=== PATIENT | female | born 1960 | race Caucasian/White ===

== ENCOUNTER 2018-08-17 02:47 | Emergency (ER) | payer SELFPAY ==
[2018-08-17] MEDS ORDERED: EPINEPHRINE/PF 1 MG/ML AMP ONE (03:20)
--- NOTE | 2018-08-17 05:07 | EDPHYS ---
Physician Documentation [facility] Name: Remedios Valdes Age: 58 yrs Sex: Female : 1960 Arrival Date: 08/17/2018 Time: 02:48 Bed 7 Private MD: ED Physician Bharath Mcrae HPI: 08/17 20:51 This 58 yrs old Female presents to ER via Ambulatory with complaints of wa Allergic Reaction. 20:51 The patient presents with rash, that is diffuse, redness of skin, swelling of the lips. wa Onset: The symptoms/episode began/occurred 3 day(s) ago. Associated signs and symptoms: Pertinent positives: rash, swelling, Pertinent negatives: shortness of breath, Syncope. Possible causes: antibiotics, Zithromax and prednisone. At home the patient or guardian has treated the symptoms with Benadryl. Severity of symptoms: At their worst the symptoms were moderate in the emergency department the symptoms are worse moderately. The patient has not experienced similar symptoms in the past. The patient has been recently seen by a physician: saw PMD and given script for bronchitis and sinus infection. Historical: - Allergies: 02:58 Azithromycin; jd3 02:58 Prednisone; jd3 - Home Meds: 02:58 None [Active]; jd3 - PMHx: 02:58 "heart problem"; jd3 - PSHx: 02:58 ; Tonsillectomy; jd3 - Immunization history:: Adult Immunizations up to date. - Social history:: Smoking status: Patient uses tobacco products, smokes one-half pack cigarettes per day, smokes one pack cigarettes per day. - Ebola Screening: : Patient negative for fever greater than or equal to 101.5 degrees Fahrenheit, and additional compatible Ebola Virus Disease symptoms. - Family history:: not pertinent. - Hospitalizations: : No recent hospitalization is reported. ROS: 20:54 Constitutional: Negative for fever, chills, and weight loss, Eyes: Negative for injury, wa pain, redness, and discharge, ENT: Negative for injury, pain, and discharge, Neck: Negative for injury, pain, and swelling, Cardiovascular: Negative for chest pain, palpitations, and edema, Respiratory: Negative for shortness of breath, cough, wheezing, and pleuritic chest pain, Abdomen/GI: Negative for abdominal pain, nausea, vomiting, diarrhea, and constipation, Back: Negative for injury and pain, : Negative for injury, bleeding, discharge, and swelling, MS/Extremity: Negative for injury and deformity, Neuro: Negative for headache, weakness, numbness, tingling, and seizure. 20:54 Skin: Positive for rash, swelling, diffusely. 20:54 All other systems are negative. Exam: 20:55 Constitutional: This is a well developed, well nourished patient who is awake, alert, wa and in no acute distress. Head/Face: Normocephalic, atraumatic. Eyes: Pupils equal round and reactive to light, extra-ocular motions intact. Lids and lashes normal. Conjunctiva and sclera are non-icteric and not injected. Cornea within normal limits. Periorbital areas with no swelling, redness, or edema. Neck: Trachea midline, no thyromegaly or masses palpated, and no cervical lymphadenopathy. Supple, full range of motion without nuchal rigidity, or vertebral point tenderness. No Meningismus. Chest/axilla: Normal chest wall appearance and motion. Nontender with no deformity. No lesions are appreciated. Cardiovascular: Regular rate and rhythm with a normal S1 and S2. No gallops, murmurs, or rubs. Normal PMI, no JVD. No pulse deficits. Respiratory: Lungs have equal breath sounds bilaterally, clear to auscultation and percussion. No rales, rhonchi or wheezes noted. No increased work of breathing, no retractions or nasal flaring. Abdomen/GI: Soft, non-tender, with normal bowel sounds. No distension or tympany. No guarding or rebound. No evidence of tenderness throughout. Back: No spinal tenderness. No costovertebral tenderness. Full range of motion. MS/ Extremity: Pulses equal, no cyanosis. Neurovascular intact. Full, normal range of motion. Neuro: Awake and alert, GCS 15, oriented to person, place, time, and situation. Cranial nerves II-XII grossly intact. Motor strength 5/5 in all extremities. Sensory grossly intact. Cerebellar exam normal. Normal gait. Psych: Awake, alert, with orientation to person, place and time. Behavior, mood, and affect are within normal limits. 20:55 ENT: noted mild facial swelling. no airway involvement. 20:55 Skin: urticaria, and is diffusely located. Vital Signs: 02:58 BP 159 / 84; Pulse 86; Resp 17 S; Temp 98.4(O); Pulse Ox 98% on R/A; Weight 68.04 kg jd3 (R); Height 5 ft. 5 in. (165.10 cm) (R); Pain 3/10; 03:57 BP 145 / 89; Pulse 107; Resp 17 S; Pulse Ox 97% on R/A; jd3 04:59 BP 131 / 88; Pulse 97; Resp 19 S; Pulse Ox 97% on R/A; jd3 05:04 BP 111 / 84; Pulse 90; Resp 18; Pulse Ox 97% on R/A; ea 02:58 Body Mass Index 24.96 (68.04 kg, 165.10 cm) jd3 MDM: 03:01 Patient medically screened. wa 20:56 Differential diagnosis: anaphylaxis, angioedema, urticaria. Data reviewed: vital signs, wa nurses notes, radiologic studies, nml CXR. 08/17 03:08 Order name: Chest Pa And Lat (2 Views) XRAY wa Administered Medications: 03:17 Drug: EPINEPHrine 1mg/mL 1:1,000 0.3 ml Route: Sub-Q; Site: abdomen; jd3 05:14 Follow up: Response: No adverse reaction; Marked relief of symptoms jd3 Disposition: 08/17/18 05:06 Discharged to Home. Impression: Acute Allergic Reaction. - Condition is Stable. - Medication Reconciliation Form, Thank You Letter, Antibiotic Education, Prescription Opioid Use form. - Follow up: Private Physician; When: 1 - 2 days; Reason: Recheck today's complaints. - Problem is new. - Symptoms have improved. - Notes: return here immediately for worsening concerns such as swelling and or difficulty breathing Signatures: Dispatcher [employer] EDMS Bharath Mcrae MD MD wa Davies, Jonathon, RN RN jd3 Corrections: (The following items were deleted from the chart) 05:14 05:06 08/17/2018 05:06 Discharged to Home. Impression: Acute Allergic Reaction. jd3 Condition is Stable. Forms are Medication Reconciliation Form, Thank You Letter, Antibiotic Education, Prescription Opioid Use. Follow up: Private Physician; When: 1 - 2 days; Reason: Recheck today's complaints. Problem is new. Symptoms have improved. wa
--- NOTE | 2018-08-17 05:07 | ER ---
Nurse's Notes [facility] Name: Remedios Valdes Age: 58 yrs Sex: Female : 1960 Arrival Date: 08/17/2018 Time: 02:48 Bed 7 Private MD: Diagnosis: Acute Allergic Reaction Presentation: 08/17 02:53 Presenting complaint: Patient states: "I am having an allergic reaction to my jd3 azithromycin and prednisone I just got filled. I took 50 mg Benadryl last at 0200 and I am still having swelling in the face and hives, and my throat hurts.". Transition of care: patient was not received from another setting of care. Onset of symptoms was August 16, 2018. Risk Assessment: Do you want to hurt yourself or someone else? Patient reports no desire to harm self or others. Initial Sepsis Screen: Does the patient meet any 2 criteria? No. Patient's initial sepsis screen is negative. Does the patient have a suspected source of infection? No. Patient's initial sepsis screen is negative. Care prior to arrival: Medication(s) given: Benadryl 50 MG taken at 0200. 02:53 Method Of Arrival: Ambulatory jd3 02:53 Acuity: RAE 3 jd3 Historical: - Allergies: 02:58 Azithromycin; jd3 02:58 Prednisone; jd3 - Home Meds: 02:58 None [Active]; jd3 - PMHx: 02:58 "heart problem"; jd3 - PSHx: 02:58 ; Tonsillectomy; jd3 - Immunization history:: Adult Immunizations up to date. - Social history:: Smoking status: Patient uses tobacco products, smokes one-half pack cigarettes per day, smokes one pack cigarettes per day. - Ebola Screening: : Patient negative for fever greater than or equal to 101.5 degrees Fahrenheit, and additional compatible Ebola Virus Disease symptoms. - Family history:: not pertinent. - Hospitalizations: : No recent hospitalization is reported. Screenin:04 Abuse screen: Denies threats or abuse. Nutritional screening: No deficits noted. jd3 Tuberculosis screening: No symptoms or risk factors identified. Fall Risk Ambulatory Aid- None/Bed Rest/Nurse Assist (0 pts). Gait- Normal/Bed Rest/Wheelchair (0 pts) Mental Status- Oriented to own ability (0 pts). Total Dunlap Fall Scale indicates No Risk (0-24 pts). Assessment: 02:59 General: Appears uncomfortable, Behavior is calm, cooperative, appropriate for age. jd3 Pain: Complains of pain in throat Quality of pain is described as aching. Neuro: Level of Consciousness is awake, alert, obeys commands, Oriented to person, place, time, situation, Appropriate for age. Cardiovascular: Capillary refill < 3 seconds Patient's skin is warm and dry. Respiratory: Reports pain in the throat. Airway is patent Respiratory effort is even, unlabored, Respiratory pattern is regular, symmetrical, Breath sounds are clear bilaterally. GI: No signs and/or symptoms were reported involving the gastrointestinal system. : No signs and/or symptoms were reported regarding the genitourinary system. EENT: No signs and/or symptoms were reported regarding the EENT system. Derm: Skin is intact, Skin is dry, Skin is normal, Skin temperature is warm Rash noted that is itchy, red, on back and right hip. Musculoskeletal: Circulation, motion, and sensation intact. Range of motion: intact in all extremities, Swelling present in face. 03:56 Reassessment: Patient appears in no apparent distress at this time. Patient and/or jd3 family updated on plan of care and expected duration. Pain level reassessed. Patient is alert, oriented x 3, equal unlabored respirations, skin warm/dry/pink. 04:59 Reassessment: Patient appears in no apparent distress at this time. Patient and/or jd3 family updated on plan of care and expected duration. Pain level reassessed. Patient is alert, oriented x 3, equal unlabored respirations, skin warm/dry/pink. Patient states feeling better. Vital Signs: 02:58 BP 159 / 84; Pulse 86; Resp 17 S; Temp 98.4(O); Pulse Ox 98% on R/A; Weight 68.04 kg jd3 (R); Height 5 ft. 5 in. (165.10 cm) (R); Pain 3/10; 03:57 BP 145 / 89; Pulse 107; Resp 17 S; Pulse Ox 97% on R/A; jd3 04:59 BP 131 / 88; Pulse 97; Resp 19 S; Pulse Ox 97% on R/A; jd3 05:04 BP 111 / 84; Pulse 90; Resp 18; Pulse Ox 97% on R/A; ea 02:58 Body Mass Index 24.96 (68.04 kg, 165.10 cm) jd3 ED Course: 02:48 Patient arrived in ED. jd3 02:55 Triage completed. jd3 02:59 Arm band placed on. jd3 03:01 Bharath Mcrae MD is Attending Physician. ks 03:04 Patient has correct armband on for positive identification. Bed in low position. Call j light in reach. Side rails up X 1. Adult w/ patient. 03:08 Erik Rosario, RN is Primary Nurse. jd3 03:31 Patient moved to radiology via wheelchair. sg4 03:36 X-ray completed. Patient tolerated procedure well. sg4 03:36 Patient moved back from radiology. sg4 04:11 Chest Pa And Lat (2 Views) XRAY In Process Unspecified. EDMS 05:13 No provider procedures requiring assistance completed. Patient did not have IV access jd3 during this emergency room visit. Administered Medications: 03:17 Drug: EPINEPHrine 1mg/mL 1:1,000 0.3 ml Route: Sub-Q; Site: abdomen; jd3 05:14 Follow up: Response: No adverse reaction; Marked relief of symptoms jd3 Outcome: 05:06 Discharge ordered by . vanessa 05:13 Discharged to home ambulatory, with family. jd3 05:13 Condition: stable 05:13 Discharge instructions given to patient, family, Instructed on discharge instructions, follow up and referral plans. Demonstrated understanding of instructions, follow-up care. 05:14 Patient left the ED. jd3 Signatures: Dispatcher [employer] EDVA Brittney Merritt RN RN ea Appiah, William, MD MD wa Davies, Jonathon, RN RN Charis Nava sg4 Corrections: (The following items were deleted from the chart) 03:04 02:53 Care prior to arrival: None. jd3 jd3 03:58 03:57 Pulse 107bpm; Resp 17bpm; Spontaneous; Pulse Ox 97% RA; jd3 jd3
--- NOTE | 2018-08-17 09:51 | RAD REPORT ---
EXAM DESCRIPTION: RAD - Chest Pa And Lat (2 Views) - 08/17/2018 4:11 am CLINICAL HISTORY: COUGH Chest pain. COMPARISON: No comparisons FINDINGS: Emphysematous changes are present throughout the lungs. Apical pleural thickening is prese nt. Calcified granulomata are seen. The heart is normal in size. No displaced fractures. IMPRESSION: Prominent COPD.
== END 2018-08-17 05:14 | disposition home or self-care (01) ==
LOC: ER 02:47
DX: L50.9 Urticaria, unspecified (principal); T50.905A Adverse effect of unspecified drugs, medicaments and biological substances, initial encounter; F17.210 Nicotine dependence, cigarettes, uncomplicated
CPT/HCPCS: 71046; 96372; 99283; J0171

== ENCOUNTER 2018-08-17 12:38 | Emergency (ER) | payer SELFPAY ==
[2018-08-17] MEDS ORDERED: DIPHENHYDRAMINE 50 MG/ML VIAL ONE (14:18)
[2018-08-17] MEDS ORDERED: DEXAMETHASONE 10 MG/ML VIAL ONE (14:18)
[2018-08-17] MEDS ORDERED: NA CHLORIDE 0.9% 500 ML ONE (14:18)
[2018-08-17] MEDS ORDERED: FAMOTIDINE 20 MG/2 ML VIAL IV ONE (14:19)
[2018-08-17 14:22] LABS: Absolute Lymphocytes (CBC) 2.6 K/uL (0.7-4.9); Absolute Monocytes 0.6 K/uL (0.1-1.3); Absolute Neutrophil 11.7 K/uL (1.8-8.0); Basophils % 0.6 % (0-1.3); Eosinophils % 0.8 % (0-4.4); Hematocrit 45.6 % (36.0-45.0); Lymphocytes % 17.3 % (15.3-44.8); MPV 6.9 fL (7.6-11.3); Monocytes % 4.2 % (3.3-12.3); RBC Red Blood Cell Count 4.96 M/uL (3.86-4.86)
[2018-08-17 14:45] LABS: Albumin 3.4 g/dL (3.4-5.0); Bilirubin Total 0.3 mg/dL (0.2-1.0); Protein, Total 7.1 g/dL (6.4-8.2)
--- NOTE | 2018-08-17 15:14 | EDPHYS ---
Physician Documentation [facility] Name: Remedios Valdes Age: 58 yrs Sex: Female : 1960 Arrival Date: 08/17/2018 Time: 12:40 Bed 26 Private MD: ED Physician Jose Juan Beltre HPI: 08/17 14:06 This 58 yrs old Female presents to ER via Ambulatory with complaints of Hand galileo Swelling, Facial Swelling. 14:06 The patient or guardian reports swelling, tenderness. galileo 14:09 The patient presents with diffuse swelling, rash, redness of skin. Onset: The galileo symptoms/episode began/occurred 2 day(s) ago. Associated signs and symptoms: Pertinent positives: hives. Possible causes: prednisone or zithromax. At home the patient or guardian has treated the symptoms with nothing. Severity of symptoms: At their worst the symptoms were moderate in the emergency department the symptoms are unchanged. The patient has not experienced similar symptoms in the past. Historical: - Allergies: 12:54 Azithromycin; iw 12:54 Prednisone; iw - PMHx: 12:54 "heart problem"; iw - PSHx: 12:54 ; Tonsillectomy; iw - Immunization history:: Adult Immunizations not up to date. - Social history:: Smoking status: Patient uses tobacco products, smokes one pack cigarettes per day. - Ebola Screening: : Patient negative for fever greater than or equal to 101.5 degrees Fahrenheit, and additional compatible Ebola Virus Disease symptoms Patient denies exposure to infectious person Patient denies travel to an Ebola-affected area in the 21 days before illness onset No symptoms or risks identified at this time. ROS: 14:10 Constitutional: Negative for fever, chills, and weight loss, Eyes: Negative for injury, galileo pain, redness, and discharge, ENT: Negative for injury, pain, and discharge, Neck: Negative for injury, pain, and swelling, Cardiovascular: Negative for chest pain, palpitations, and edema, Respiratory: Negative for shortness of breath, cough, wheezing, and pleuritic chest pain, Abdomen/GI: Negative for abdominal pain, nausea, vomiting, diarrhea, and constipation, Back: Negative for injury and pain, : Negative for injury, bleeding, discharge, and swelling, MS/Extremity: Negative for injury and deformity, Neuro: Negative for headache, weakness, numbness, tingling, and seizure, Psych: Negative for depression, anxiety, suicide ideation, homicidal ideation, and hallucinations, Allergy/Immunology: Negative for hives, rash, and allergies, Endocrine: Negative for neck swelling, polydipsia, polyuria, polyphagia, and marked weight changes, Hematologic/Lymphatic: Negative for swollen nodes, abnormal bleeding, and unusual bruising. 14:10 Skin: Positive for rash. Exam: 14:10 Constitutional: This is a well developed, well nourished patient who is awake, alert, galileo and in no acute distress. Head/Face: Normocephalic, atraumatic. Eyes: Pupils equal round and reactive to light, extra-ocular motions intact. Lids and lashes normal. Conjunctiva and sclera are non-icteric and not injected. Cornea within normal limits. Periorbital areas with no swelling, redness, or edema. Neck: Trachea midline, no thyromegaly or masses palpated, and no cervical lymphadenopathy. Supple, full range of motion without nuchal rigidity, or vertebral point tenderness. No Meningismus. Chest/axilla: Normal chest wall appearance and motion. Nontender with no deformity. No lesions are appreciated. Cardiovascular: Regular rate and rhythm with a normal S1 and S2. No gallops, murmurs, or rubs. Normal PMI, no JVD. No pulse deficits. Respiratory: Lungs have equal breath sounds bilaterally, clear to auscultation and percussion. No rales, rhonchi or wheezes noted. No increased work of breathing, no retractions or nasal flaring. Abdomen/GI: Soft, non-tender, with normal bowel sounds. No distension or tympany. No guarding or rebound. No evidence of tenderness throughout. Back: No spinal tenderness. No costovertebral tenderness. Full range of motion. MS/ Extremity: Pulses equal, no cyanosis. Neurovascular intact. Full, normal range of motion. Neuro: Awake and alert, GCS 15, oriented to person, place, time, and situation. Cranial nerves II-XII grossly intact. Motor strength 5/5 in all extremities. Sensory grossly intact. Cerebellar exam normal. Normal gait. Psych: Awake, alert, with orientation to person, place and time. Behavior, mood, and affect are within normal limits. 14:10 ENT: Posterior pharynx: Tonsils: enlarged on the left, with erythema, Uvula: normal, midline, swelling, that is mild, erythema, that is mild, exudate, is not appreciated. 14:10 Skin: Appearance: Color: pink, erythematous, Temperature: warm, Moisture: normal moisture, petechiae, not noted, ecchymosis, not noted, flushing, not noted, diaphoresis is not appreciated. Vital Signs: 12:54 BP 154 / 79; Pulse 90; Resp 18 S; Temp 97.6; Pulse Ox 95% on R/A; Weight 68.04 kg; iw Height 5 ft. 5 in. (165.10 cm); Pain 4/10; 13:40 BP 157 / 80; Pulse 93; Resp 18; Pulse Ox 96% on R/A; mt 14:35 BP 116 / 57; Pulse 93; Resp 18; Pulse Ox 99% on R/A; tl3 15:19 BP 124 / 76; Pulse 89; Resp 18; Pulse Ox 97% on R/A; Pain 0/10; ed1 12:54 Body Mass Index 24.96 (68.04 kg, 165.10 cm) iw MDM: 13:41 Patient medically screened. [facility] 14:12 Data reviewed: vital signs, nurses notes, lab test result(s), radiologic studies, plain galileo films. 08/17 14:06 Order name: CBC with Diff [facility] 08/17 14:06 Order name: Comprehensive Metabolic Panel; Complete Time: 15:13 [facility] 08/17 14:06 Order name: Urine Culture [facility] 08/17 15:15 Order name: Urine Dipstick--Ancillary (enter results) 08/17 14:06 Order name: Urine Dipstick-Ancillary (obtain specimen); Complete Time: 15:16 [facility] Administered Medications: 14:17 Drug: Decadron - Dexamethasone 10 mg Route: IVP; Infused Over: 1 mins; Site: right tl3 antecubital; 14:50 Follow up: Response: No adverse reaction tl3 14:18 Drug: NS 0.9% 500 ml Route: IV; Rate: bolus; Infused Over: 30 mins; Site: right tl3 antecubital; Delivery: Primary tubing; 14:51 Follow up: IV Status: Completed infusion; IV Intake: 500ml tl3 14:18 Drug: Benadryl 50 mg Route: IVP; Infused Over: 30 mins; Site: right antecubital; tl3 14:51 Follow up: Response: No adverse reaction tl3 14:18 Drug: Pepcid 40 mg Route: IVP; Infused Over: 2 mins; Site: right antecubital; tl3 14:51 Follow up: Response: No adverse reaction tl3 Disposition: 08/17/18 15:13 Discharged to Home. Impression: Urticaria, Elevated white blood cell count, Urinary tract infection, site not specified. - Condition is Fair. - Discharge Instructions: Allergies, Adult, Dysuria, Hives, Hives, [id number]. - Prescriptions for Benadryl 25 mg Oral Capsule - take 2 capsule by ORAL route every 6 hours As needed; 36 tablet. Pepcid 20 mg Oral Tablet - take 1 tablet by ORAL route every 12 hours for 10 days; 20 tablet. Dexamethasone 0.75 mg Oral Tablet - take 2 tablet by ORAL route 2 times per day; 20 tablet. Bactrim DS 800- 160 mg Oral Tablet - take 1 tablet by ORAL route every 12 hours for 5 days; 10 tablet. - Medication Reconciliation Form, Thank You Letter, Antibiotic Education, Prescription Opioid Use form. - Follow up: Private Physician; When: 2 - 3 days; Reason: Recheck today's complaints, Continuance of care, Re-evaluation by your physician. - Problem is new. - Symptoms have improved. Signatures: Dispatcher [employer] EDJose Juan uSn MD MD cha Williams, Irene, RN MARIO iw Violeta Fuentes, RESIDENTIAL MORTGAGE UNDERWRITER RESIDENTIAL MORTGAGE UNDERWRITER ed1 Vilma Burns RN RN tl3 Corrections: (The following items were deleted from the chart) 15:14 15:13 08/17/2018 15:13 Discharged to Home. Impression: Urticaria; Elevated white blood galileo cell count. Condition is Fair. Discharge Instructions: Allergies, Adult, Hives, Hives, [id number]. Prescriptions for Benadryl 25 mg Oral Capsule - take 1 capsule by ORAL route every 6 hours As needed; 30 tablet, Pepcid 20 mg Oral Tablet - take 1 tablet by ORAL route every 12 hours for 10 days; 20 tablet, Dexamethasone 0.75 mg Oral Tablet - take 2 tablet by ORAL route 2 times per day; 20 tablet. and Forms are Medication Reconciliation Form, Thank You Letter, Antibiotic Education, Prescription Opioid Use. Follow up: Private Physician; When: 2 - 3 days; Reason: Recheck today's complaints, Continuance of care, Re-evaluation by your physician. Problem is new. Symptoms have improved. [facility] 15:22 15:14 08/17/2018 15:13 Discharged to Home. Impression: Urticaria; Elevated white blood ed1 cell count; Urinary tract infection, site not specified. Condition is Fair. Discharge Instructions: Allergies, Adult, Hives, Hives, [id number]. Prescriptions for Benadryl 25 mg Oral Capsule - take 2 capsule by ORAL route every 6 hours As needed; 36 tablet, Pepcid 20 mg Oral Tablet - take 1 tablet by ORAL route every 12 hours for 10 days; 20 tablet, Dexamethasone 0.75 mg Oral Tablet - take 2 tablet by ORAL route 2 times per day; 20 tablet. and Forms are Medication Reconciliation Form, Thank You Letter, Antibiotic Education, Prescription Opioid Use. Follow up: Private Physician; When: 2 - 3 days; Reason: Recheck today's complaints, Continuance of care, Re-evaluation by your physician. Problem is new. Symptoms have improved. [facility]
--- NOTE | 2018-08-17 15:14 | ER ---
Nurse's Notes [facility] Name: Remedios Valdes Age: 58 yrs Sex: Female : 1960 Arrival Date: 08/17/2018 Time: 12:40 Bed 26 Private MD: Diagnosis: Urticaria;Elevated white blood cell count;Urinary tract infection, site not specified Presentation: 08/17 12:52 Presenting complaint: Patient states: was here for an allergic reaction, given epi shot iw and sent home, states symptoms are rosangela from when she left last night, has swelling to hands and mild swelling to face, also c/o itchiness. Transition of care: patient was not received from another setting of care. Onset of symptoms was August 17, 2018. Risk Assessment: Do you want to hurt yourself or someone else? Patient reports no desire to harm self or others. Initial Sepsis Screen: Does the patient meet any 2 criteria? No. Patient's initial sepsis screen is negative. Does the patient have a suspected source of infection? No. Patient's initial sepsis screen is negative. Care prior to arrival: None. 12:52 Method Of Arrival: Ambulatory 12:52 Acuity: RAE 3 iw Historical: - Allergies: 12:54 Azithromycin; iw 12:54 Prednisone; iw - PMHx: 12:54 "heart problem"; iw - PSHx: 12:54 ; Tonsillectomy; iw - Immunization history:: Adult Immunizations not up to date. - Social history:: Smoking status: Patient uses tobacco products, smokes one pack cigarettes per day. - Ebola Screening: : Patient negative for fever greater than or equal to 101.5 degrees Fahrenheit, and additional compatible Ebola Virus Disease symptoms Patient denies exposure to infectious person Patient denies travel to an Ebola-affected area in the 21 days before illness onset No symptoms or risks identified at this time. Screenin:56 Abuse screen: Denies threats or abuse. Nutritional screening: No deficits noted. tl3 Tuberculosis screening: No symptoms or risk factors identified. Fall Risk None identified. Assessment: 13:56 General: Appears distressed, uncomfortable, well groomed, well developed, well tl3 nourished, Behavior is anxious. Pain: Complains of pain in generalized swelling, itching. Neuro: No deficits noted. Level of Consciousness is awake, alert, obeys commands, Oriented to person, place, time, situation, Appropriate for age. Cardiovascular: Patient's skin is warm and dry. Respiratory: Airway is patent Respiratory effort is even, unlabored, Respiratory pattern is regular, symmetrical. GI: No signs and/or symptoms were reported involving the gastrointestinal system. : No signs and/or symptoms were reported regarding the genitourinary system. EENT: No signs and/or symptoms were reported regarding the EENT system. Derm: Skin is red, Rash noted that is itchy. Musculoskeletal: No signs and/or symptoms reported regarding the musculoskeletal system. 13:59 Reassessment: pt had reaction to Z-pack or steroids that she was on, seen here last tl3 night received EPI, swelling and itching with generalized rash. Dr Beltre at bedside for assessment. 14:19 Reassessment: pt crying stating that she is burning all over, verbally reassured her tl3 that in 10 minutes if meds do not relieve symptoms that MD would be informed, and new orders asked for. 14:35 Reassessment: Patient appears in no apparent distress at this time. Pt states itching tl3 is better. 15:19 Reassessment: Patient appears in no apparent distress at this time. Patient and/or ed1 family updated on plan of care and expected duration. Pain level reassessed. Patient is alert, oriented x 3, equal unlabored respirations, skin warm/dry/pink. Pt states "I am still itching, but I feel a lot better.". Vital Signs: 12:54 BP 154 / 79; Pulse 90; Resp 18 S; Temp 97.6; Pulse Ox 95% on R/A; Weight 68.04 kg; iw Height 5 ft. 5 in. (165.10 cm); Pain 4/10; 13:40 BP 157 / 80; Pulse 93; Resp 18; Pulse Ox 96% on R/A; mt 14:35 BP 116 / 57; Pulse 93; Resp 18; Pulse Ox 99% on R/A; tl3 15:19 BP 124 / 76; Pulse 89; Resp 18; Pulse Ox 97% on R/A; Pain 0/10; ed1 12:54 Body Mass Index 24.96 (68.04 kg, 165.10 cm) iw ED Course: 12:40 Patient arrived in ED. sb2 12:54 Triage completed. iw 12:54 Arm band placed on. iw 13:40 Jose Juan Beltre MD is Attending Physician. galileo 13:54 Vilma Burns, RN is Primary Nurse. tl3 13:56 Patient has correct armband on for positive identification. Bed in low position. Call tl3 light in reach. Side rails up X 1. Adult w/ patient. Pulse ox on. NIBP on. 13:56 No provider procedures requiring assistance completed. tl3 14:07 Inserted saline lock: 20 gauge in right antecubital area, using aseptic technique. mt Blood collected. 15:19 IV discontinued, intact, bleeding controlled, No redness/swelling at site. Pressure ed1 dressing applied. Administered Medications: 14:17 Drug: Decadron - Dexamethasone 10 mg Route: IVP; Infused Over: 1 mins; Site: right tl3 antecubital; 14:50 Follow up: Response: No adverse reaction tl3 14:18 Drug: NS 0.9% 500 ml Route: IV; Rate: bolus; Infused Over: 30 mins; Site: right tl3 antecubital; Delivery: Primary tubing; 14:51 Follow up: IV Status: Completed infusion; IV Intake: 500ml tl3 14:18 Drug: Benadryl 50 mg Route: IVP; Infused Over: 30 mins; Site: right antecubital; tl3 14:51 Follow up: Response: No adverse reaction tl3 14:18 Drug: Pepcid 40 mg Route: IVP; Infused Over: 2 mins; Site: right antecubital; tl3 14:51 Follow up: Response: No adverse reaction tl3 Intake: 14:51 IV: 500ml; Total: 500ml. tl3 Outcome: 15:13 Discharge ordered by . galileo 15:19 Discharged to home ambulatory, with family. ed1 15:19 Condition: good 15:19 Discharge instructions given to patient, Instructed on discharge instructions, follow up and referral plans. medication usage, Demonstrated understanding of instructions, follow-up care, medications, Prescriptions given X 4. 15:22 Patient left the ED. ed1 Signatures: Jose Juan Beltre MD MD cha Williams, Irene, RN RN iw Gina, Violeta, GEAR INSPECTOR GEAR INSPECTOR ed1 Liliana Gross fl Portia Nelson sb2 Vilma Burns, RN RN tl3 Corrections: (The following items were deleted from the chart) 14:08 12:52 Acuity: RAE 4 iw iw
[2018-08-17 15:32] LABS: Urine Blood NEGATIVE (NEG); Urine Glucose NEGATIVE (NEG); Urine Protein NEGATIVE (NEG); Urine Specific Gravity 1.025 (1.005-1.030); Urine pH 5.5 (5.0-7.0)
[2018-08-17 17:10] LABS: Blood Morphology Comment NOT SEEN (NOT SEEN); Platelet Estimate INCR
== END 2018-08-17 15:22 | disposition home or self-care (01) ==
LOC: ER 12:38
DX: L50.9 Urticaria, unspecified (principal); D72.829 Elevated white blood cell count, unspecified; N39.0 Urinary tract infection, site not specified; F17.210 Nicotine dependence, cigarettes, uncomplicated
CPT/HCPCS: 36415; 80053; 81003; 85025; 87086; 87088; 96361; 96374; 96375; 99284; J1100

== ENCOUNTER 2018-08-19 13:57 | Emergency (ER) | payer SELFPAY ==
[2018-08-19] MEDS ORDERED: FAMOTIDINE 20 MG/2 ML VIAL IV ONE (14:49)
[2018-08-19] MEDS ORDERED: DIPHENHYDRAMINE 50 MG/ML VIAL ONE (14:49)
[2018-08-19] MEDS ORDERED: METHYLPREDNISOLONE 125 MG INJ ONE (14:49)
--- NOTE | 2018-08-19 15:42 | ER ---
Nurse's Notes [facility] Name: Remedios Valdes Age: 58 yrs Sex: Female : 1960 Arrival Date: 08/19/2018 Time: 13:59 Bed 6 Private MD: Diagnosis: Urticaria, unspecified Presentation: 08/19 14:11 Presenting complaint: Patient states: i think i have an allergic reaction to a new medication, sulfamethoxazole, famotidine, dexamethasone fro flu and possible pneumonia; i started breaking in hives, rash; denies SOB; took Benadryl 12 noon today;. Transition of care: patient was not received from another setting of care. Onset: The symptoms/episode began/occurred this morning. Anaphylaxis evaluation, the patient reports or I have noted the following symptoms which indicate a significant risk of anaphylaxis:. Onset of symptoms was August 19, 2018. Risk Assessment: Do you want to hurt yourself or someone else? Patient reports no desire to harm self or others. Initial Sepsis Screen: Does the patient meet any 2 criteria? No. Patient's initial sepsis screen is negative. Does the patient have a suspected source of infection? No. Patient's initial sepsis screen is negative. Care prior to arrival: None. 14:11 Method Of Arrival: Ambulatory 14:11 Acuity: RAE 4 hj Triage Assessment: 14:15 General: Appears in no apparent distress. uncomfortable, Behavior is calm, cooperative, hj appropriate for age. Pain: Denies pain. Historical: - Allergies: 14:14 Azithromycin; 14:14 Prednisone; - Home Meds: 14:14 None [Active]; - PMHx: 14:14 "heart problem"; - PSHx: 14:14 ; Tonsillectomy; hj - Immunization history:: Adult Immunizations not up to date. - Social history:: Smoking status: Patient uses tobacco products, Patient uses alcohol, occasionally. - Ebola Screening: : Patient negative for fever greater than or equal to 101.5 degrees Fahrenheit, and additional compatible Ebola Virus Disease symptoms Patient denies exposure to infectious person Patient denies travel to an Ebola-affected area in the 21 days before illness onset. - Family history:: not pertinent. - Hospitalizations: : No recent hospitalization is reported. Screenin:15 Abuse screen: Denies threats or abuse. Denies injuries from another. Nutritional hj screening: No deficits noted. Tuberculosis screening: No symptoms or risk factors identified. Fall Risk None identified. Assessment: 14:15 Respiratory: Airway is patent Respiratory effort is even, unlabored, Respiratory hj pattern is regular, symmetrical, 14:25 General: Appears in no apparent distress. Behavior is anxious. Neuro: Level of tw2 Consciousness is awake, alert, obeys commands, Oriented to person, place, situation. Cardiovascular: Patient's skin is warm and dry. Respiratory: Airway is patent Respiratory effort is even, unlabored, Respiratory pattern is regular, symmetrical. Derm: Reports itching. Musculoskeletal: Range of motion: intact in all extremities. 15:40 Reassessment: Patient appears in no apparent distress at this time. No changes from tw2 previously documented assessment. Patient and/or family updated on plan of care and expected duration. Pain level reassessed. Patient is alert, oriented x 3, equal unlabored respirations, skin warm/dry/pink. 15:48 Reassessment: Patient states feeling better. Patient states symptoms have improved. tw2 Vital Signs: 14:15 BP 171 / 86; Pulse 86; Resp 18; Temp 97.9(TE); Pulse Ox 97% on R/A; Weight 68.04 kg; hj Height 5 ft. 5 in. (165.10 cm); Pain 0/10; 14:58 BP 168 / 100; Pulse 79; Resp 19; Pulse Ox 96% on R/A; tw2 15:28 BP 156 / 92; Pulse 79; Resp 18; Pulse Ox 96% ; sv 14:15 Body Mass Index 24.96 (68.04 kg, 165.10 cm) ED Course: 13:59 Patient arrived in ED. mr 14:14 Triage completed. hj 14:15 Arm band placed on right wrist. hj 14:15 Patient has correct armband on for positive identification. Bed in low position. Call light in reach. Side rails up X 1. 14:18 Tash Whatley, MARIO is Primary Nurse. tw2 14:18 [place] MD is Attending Physician. rn 14:40 Inserted saline lock: 22 gauge in right hand, using aseptic technique. tw2 15:48 No provider procedures requiring assistance completed. IV discontinued, intact, tw2 bleeding controlled, No redness/swelling at site. Pressure dressing applied. Administered Medications: 14:42 Drug: Benadryl 50 mg Route: IVP; Site: right hand; tw2 15:42 Follow up: Response: No adverse reaction; Marked relief of symptoms tw2 14:47 Drug: Pepcid 20 mg Route: IVP; Site: right hand; tw2 15:42 Follow up: Response: No adverse reaction tw2 14:53 Drug: SOLU-Medrol 125 mg Route: IVP; Site: right hand; tw2 15:42 Follow up: Response: No adverse reaction tw2 Outcome: 15:41 Discharge ordered by . rn 15:48 Discharged to home ambulatory, with family, with significant other. tw2 15:48 Condition: stable 15:48 Discharge instructions given to patient, family, significant other, Instructed on discharge instructions, follow up and referral plans. medication usage, Demonstrated understanding of instructions, follow-up care, medications, Prescriptions given X 2. 15:49 Patient left the ED. tw2 Signatures: Tiffany Orellana RN RN sv Rivera, Mary mr Nieto, Roman, MD MD rn Joaquin, Henry, RN RN hj Wise, Tara, RN RN tw2 Corrections: (The following items were deleted from the chart) 14:14 14:11 Presenting complaint: Patient states: i think i have an allergic reaction to a hj new medication, sulfamethoxazole, famotidine, dexamethasone fro flu and possible pneumonia; i started breaking in hives, rash; denies SOB; hj 14:18 14:15 Pulse 86bpm; Resp 18bpm; Pulse Ox 97% RA; Temp 97.9F Temporal; 68.04 kg; Height 5 hj ft. 5 in.; BMI: 24.9; Pain 0/10; hj
--- NOTE | 2018-08-19 15:42 | EDPHYS ---
Physician Documentation [facility] Name: Remedios Valdes Age: 58 yrs Sex: Female : 1960 Arrival Date: 08/19/2018 Time: 13:59 Bed 6 Private MD: ED Physician [place] HPI: 08/19 15:01 This 58 yrs old Female presents to ER via Ambulatory with complaints of rn Allergic Reaction, Anxiety. 15:01 The patient presents with itching, rash. Onset: The symptoms/episode began/occurred rn today. Possible causes: At home the patient or guardian has treated the symptoms with Benadryl. Severity of symptoms: At their worst the symptoms were mild in the emergency department the symptoms are unchanged. The patient has experienced similar episodes in the past. Reports this is 3rd visit this week for allergic reaction, + rash and itching, no swelling, no sob, reports first time took azithromycin and got better with steroids, switched to bactrim and got better, today began again with hives and itching, not as bad as first time, last dose of bactrim last night. . Historical: - Allergies: 14:14 Azithromycin; hj 14:14 Prednisone; hj - Home Meds: 14:14 None [Active]; hj - PMHx: 14:14 "heart problem"; hj - PSHx: 14:14 ; Tonsillectomy; hj - Immunization history:: Adult Immunizations not up to date. - Social history:: Smoking status: Patient uses tobacco products, Patient uses alcohol, occasionally. - Ebola Screening: : Patient negative for fever greater than or equal to 101.5 degrees Fahrenheit, and additional compatible Ebola Virus Disease symptoms Patient denies exposure to infectious person Patient denies travel to an Ebola-affected area in the 21 days before illness onset. - Family history:: not pertinent. - Hospitalizations: : No recent hospitalization is reported. ROS: 15:01 Constitutional: Negative for fever, chills, and weight loss, Eyes: Negative for injury, rn pain, redness, and discharge, Neck: Negative for injury, pain, and swelling, Cardiovascular: Negative for chest pain, palpitations, and edema, Respiratory: Negative for shortness of breath, cough, wheezing, and pleuritic chest pain, Abdomen/GI: Negative for abdominal pain, nausea, vomiting, diarrhea, and constipation, MS/Extremity: Negative for injury and deformity, Skin: + hives and itching Neuro: Negative for headache, weakness, numbness, tingling, and seizure. Exam: 15:01 Constitutional: This is a well developed, well nourished patient who is awake, alert, rn and in no acute distress, scratching neck Head/Face: Normocephalic, atraumatic. Eyes: Pupils equal round and reactive to light, extra-ocular motions intact. Lids and lashes normal. Conjunctiva and sclera are non-icteric and not injected. Cornea within normal limits. Periorbital areas with no swelling, redness, or edema. ENT: no oral lesions or swelling Respiratory: No increased work of breathing, no retractions or nasal flaring. Abdomen/GI: soft, non-tender Skin: + mild urticarial lesions to neck and bilateral upper ext, no skin sloughing MS/ Extremity: Pulses equal, no cyanosis. Neurovascular intact. Full, normal range of motion. Equal circumference. Neuro: Awake and alert, GCS 15, oriented to person, place, time, and situation. Cranial nerves II-XII grossly intact. Motor strength 5/5 in all extremities. Sensory grossly intact. Cerebellar exam normal. Normal gait. Vital Signs: 14:15 BP 171 / 86; Pulse 86; Resp 18; Temp 97.9(TE); Pulse Ox 97% on R/A; Weight 68.04 kg; hj Height 5 ft. 5 in. (165.10 cm); Pain 0/10; 14:58 BP 168 / 100; Pulse 79; Resp 19; Pulse Ox 96% on R/A; tw2 15:28 BP 156 / 92; Pulse 79; Resp 18; Pulse Ox 96% ; sv 14:15 Body Mass Index 24.96 (68.04 kg, 165.10 cm) hj MDM: 14:19 Patient medically screened. rn 15:39 Differential diagnosis: urticaria. Data reviewed: vital signs, nurses notes, and as a rn result, I will discharge patient. Counseling: I had a detailed discussion with the patient and/or guardian regarding: the historical points, exam findings, and any diagnostic results supporting the discharge/admit diagnosis, the need for outpatient follow up, to return to the emergency department if symptoms worsen or persist or if there are any questions or concerns that arise at home. Response to treatment: the patient's symptoms have markedly improved after treatment, and as a result, I will discharge patient. Special discussion: I discussed with the patient/guardian in detail that at this point there is no indication for admission to the hospital. It is understood, however, that if the symptoms persist or worsen the patient needs to return immediately for re-evaluation. 08/19 14:38 Order name: IV Start; Complete Time: 14:55 rn Administered Medications: 14:42 Drug: Benadryl 50 mg Route: IVP; Site: right hand; tw2 15:42 Follow up: Response: No adverse reaction; Marked relief of symptoms tw2 14:47 Drug: Pepcid 20 mg Route: IVP; Site: right hand; tw2 15:42 Follow up: Response: No adverse reaction tw2 14:53 Drug: SOLU-Medrol 125 mg Route: IVP; Site: right hand; tw2 15:42 Follow up: Response: No adverse reaction tw2 Disposition: 08/19/18 15:41 Discharged to Home. Impression: Urticaria, unspecified. - Condition is Stable. - Discharge Instructions: Hives. - Prescriptions for Hydroxyzine HCl 50 mg Oral Tablet - take 1 tablet by ORAL route every 8 hours As needed; 20 tablet. Prednisone 20 mg Oral Tablet - take 3 tablet by ORAL route once daily for 5 days; 15 tablet. - Medication Reconciliation Form, Thank You Letter, Antibiotic Education, Prescription Opioid Use, Work release form form. - Follow up: Private Physician; When: As needed; Reason: Recheck today's complaints, Re-evaluation by your physician. - Problem is new. - Symptoms have improved. Signatures: [place] MD MD rn Joaquin, Henry, RN RN hj Wise, Tara, RN RN tw2 Corrections: (The following items were deleted from the chart) 15:49 15:41 08/19/2018 15:41 Discharged to Home. Impression: Urticaria, unspecified. tw2 Condition is Stable. Forms are Medication Reconciliation Form, Thank You Letter, Antibiotic Education, Prescription Opioid Use. Follow up: Private Physician; When: As needed; Reason: Recheck today's complaints, Re-evaluation by your physician. Problem is new. Symptoms have improved. rn
== END 2018-08-19 15:49 | disposition home or self-care (01) ==
LOC: ER 13:57
DX: L50.9 Urticaria, unspecified (principal); Z72.0 Tobacco use
CPT/HCPCS: 96374; 96375; 99283; J2930